=== PATIENT | male | born 1995 | race Caucasian/White ===

== ENCOUNTER 2016-11-17 08:22 | Emergency (ER) | payer SELFPAY ==
[~2016-11-17] VITALS: Ht 154.9 cm; Wt 81.6 kg
[~2016-11-17 08:22] MED LIST: ADDERALL PO; AURODEX EAR DRO15 ML OT; CLONIDINE PO; OMNICEF PO; TOPAMAX PO; ZITHROMAX PO
== END 2016-11-17 09:15 | disposition home or self-care (01) ==
LOC: CED 08:22
DX: S39.012A Strain of muscle, fascia and tendon of lower back, initial encounter (principal); X50.9XXA Other and unspecified overexertion or strenuous movements or postures, initial encounter; Y99.0 Civilian activity done for income or pay
CPT/HCPCS: 99283